=== PATIENT | female | born 1950 | race Caucasian/White ===

== ENCOUNTER 2022-03-10 18:56 | Emergency (ER) | payer MEDICARE ==
[~2022-03-10] VITALS: Ht 152.4 cm; Wt 81.7 kg
[~2022-03-10 18:56] MED LIST: HYDCHL12.5 PO; LIOT5; LOSA25 PO; METF500 PO; NATURE THROID; OMEP20ER PO; SUPRENZA ODT15 MG PO; VALS80 PO
[2022-03-10] MEDS ORDERED: ERYT.5TO BOTHEYES (21:22)
== END 2022-03-10 21:30 | disposition home or self-care (01) ==
LOC: ER 18:56
DX: H10.9 Unspecified conjunctivitis (principal); I10 Essential (primary) hypertension; Z79.899 Other long term (current) drug therapy; Z88.2 Allergy status to sulfonamides; Z91.018 Allergy to other foods
CPT/HCPCS: A9270

== ENCOUNTER 2024-07-05 17:01 | Emergency (ER) | payer MEDICARE ==
[~2024-07-05] VITALS: Ht 152.4 cm; Wt 81.7 kg
[~2024-07-05 17:01] MED LIST changes: +ERYT.5TO BOTHEYES
[2024-07-05 17:38] LABS: BASOPHILS ABSOLUTE AUTO 0.02 K/mm3 (0.00-0.23); BASOPHILS PERCENT AUTO 0 % (0-2); EOSINOPHILS ABSOLUTE AUTO 0.12 K/mm3 (0.00-0.68); EOSINOPHILS PERCENT AUTO 2 % (0-6); Hematocrit 40.6 % (33.0-51.0); Hemoglobin 13.2 g/dL (11.5-16.0); IMMATURE GRAN ABSOLUTE AUTO 0.03 K/mm3 (0.00-0.10); IMMATURE GRAN PERCENT AUTO 0 % (0-1); LYMPHOCYTES ABSOLUTE AUTO 0.63 K/mm3 (0.84-5.20); LYMPHOCYTES PERCENT AUTO 9 % (21-46); MONOCYTES ABSOLUTE AUTO 0.45 K/mm3 (0.16-1.47); MONOCYTES PERCENT AUTO 7 % (4-13); Mean Corpuscular HGB 29.2 pg (26.0-34.0); Mean Corpuscular HGB Conc 32.5 g/dL (31.5-36.5); Mean Corpuscular Volume 90 fL (80-100); NEUTROPHILS ABSOLUTE AUTO 5.59 K/mm3 (1.96-9.15); NEUTROPHILS PERCENT AUTO 82 % (41-73); Platelet Count 179 K/mm3 (150-400); RDW Coefficient Variation 13.2 % (11.7-14.2); RDW Standard Deviation 43.8 fL (35.1-46.3); Red Blood Cell Count 4.52 M/mm3 (3.80-5.20); White Blood Cell Count 6.84 K/mm3 (4.00-11.30)
[2024-07-05 18:16] LABS: Albumin, Blood 3.8 g/dL (3.4-5.0); Albumin/Globulin Ratio 1.2 (0.8-1.8); Bilirubin, Total 0.3 mg/dL (0.1-1.0); Bun/Creatinine Ratio 20.1 (12.0-20.0); Calcium, Blood 9.1 mg/dL (8.5-10.1); Creatinine, Blood 0.8 mg/dL (0.40-1.00); Globulin, Blood 3.2 g/dL (2.2-4.0); Potassium, Blood 3.9 mmol/L (3.5-5.5)
[2024-07-05] MEDS ORDERED: LOSA50 PO (18:57)
[2024-07-05] MEDS ORDERED: SPIRONOLACTONE50 MG PO (18:57)
[2024-07-05] MEDS ORDERED: BUPROPION HCL200 M1 PO (18:58)
[2024-07-05] MEDS ORDERED: METFORMIN HCL500 M3 PO (18:58)
[2024-07-05] MEDS ORDERED: ESTRADIOL1 M1 PO (18:59)
[2024-07-05] MEDS ORDERED: ADTHYZA PO (18:59)
[2024-07-05 19:07] LABS: Source, Urine Clean Catch
[2024-07-05 19:12] LABS: Appearance, Urine Clear (Clear); Bilirubin, Urine Neg (Neg); Blood, Urine Neg (Neg); Color, Urine Yellow (P-Yellow); Glucose Qualitative, Urine Neg (Neg); Ketones, Urine Neg (Neg); Leukocyte Esterase, Urine 1+ (Neg); Nitrite, Urine Neg (Neg); Protein, Urine Neg (Neg); Urobilinogen, Urine NORM (Normal)
[2024-07-05 19:30] VITALS: BP 149/82
[2024-07-05 19:35] LABS: Bacteria Many /hpf; Red Blood Cells, Urine 0-2 /hpf (0-2); Squamous Epithelial Cells Mod /hpf (Few); White Blood Cells, Urine 0-2 /hpf (0-5)
[2024-07-05 19:36] LABS: Amorphous Light (0-Heavy)
== END 2024-07-05 20:17 | disposition home or self-care (01) ==
LOC: ER 17:01
PROVIDERS: Physician Assistant
DX: R10.11 Right upper quadrant pain (principal); K63.89 Other specified diseases of intestine; I10 Essential (primary) hypertension; I48.91 Unspecified atrial fibrillation; Z88.2 Allergy status to sulfonamides; Z79.899 Other long term (current) drug therapy; Z79.84 Long term (current) use of oral hypoglycemic drugs; Z79.890 Hormone replacement therapy; Z16.29 Resistance to other single specified antibiotic
CPT/HCPCS: 74177; 80053; 81001; 83605; 85025; 87086; 99284-25; Q9967

== ENCOUNTER → 2024-07-07 | Outpatient (CLI) | payer MEDICARE ==
[~2024-07-07] MED LIST changes: +ADTHYZA PO; +BUPROPION HCL200 M1 PO; +ESTRADIOL1 M1 PO; +LOSA50 PO; +METFORMIN HCL500 M3 PO; +SPIRONOLACTONE50 MG PO
[2024-07-07 09:45] LABS: BASOPHILS ABSOLUTE AUTO 0.02 K/mm3 (0.00-0.23); BASOPHILS PERCENT AUTO 0 % (0-2); EOSINOPHILS ABSOLUTE AUTO 0.02 K/mm3 (0.00-0.68); EOSINOPHILS PERCENT AUTO 0 % (0-6); Hematocrit 39.1 % (33.0-51.0); Hemoglobin 12.8 g/dL (11.5-16.0); IMMATURE GRAN ABSOLUTE AUTO 0.03 K/mm3 (0.00-0.10); IMMATURE GRAN PERCENT AUTO 1 % (0-1); LYMPHOCYTES ABSOLUTE AUTO 0.52 K/mm3 (0.84-5.20); LYMPHOCYTES PERCENT AUTO 9 % (21-46); MONOCYTES PERCENT AUTO 9 % (4-13); Mean Corpuscular HGB 29.5 pg (26.0-34.0); Mean Corpuscular HGB Conc 32.7 g/dL (31.5-36.5); Mean Corpuscular Volume 90 fL (80-100); Mean Platelet Volume 10.9 fL (9.1-12.4); NEUTROPHILS ABSOLUTE AUTO 4.57 K/mm3 (1.96-9.15); NEUTROPHILS PERCENT AUTO 81 % (41-73); Platelet Count 159 K/mm3 (150-400); RDW Coefficient Variation 13.6 % (11.7-14.2); RDW Standard Deviation 44.6 fL (35.1-46.3); Red Blood Cell Count 4.34 M/mm3 (3.80-5.20); White Blood Cell Count 5.66 K/mm3 (4.00-11.30)
== END ==
LOC: LAB SHORT 09:41 → LAB 09:41
PROVIDERS: Physician Assistant
DX: R10.31 Right lower quadrant pain (principal)
CPT/HCPCS: 85025

== ENCOUNTER → 2024-12-28 | Outpatient (CLI) | payer MEDICARE ==
[2024-12-28 20:46] LABS: Creatinine, Urine Random 151.0 mg/dL (27.00-270.00); Microalb/Creat Ratio UR, Rand 4.126 mg/g (0.000-30.000); Microalbumin, Random Urine 6.23 mg/L (0.000-20.000)
== END | disposition home or self-care (01) ==
LOC: LAB 14:07 → LAB SHORT 14:07
PROVIDERS: Internal Medicine
DX: E11.9 Type 2 diabetes mellitus without complications (principal)
CPT/HCPCS: 82043; 82570

== ENCOUNTER → 2025-01-03 | Outpatient (CLI) | payer MEDICARE ==
[~2025-01-03] MED LIST changes: +AMOCLA875 PO; -LIOT5; +LIOT5 PO; +MODAFINIL100 M4 PO; +MONDOXYNE NL100 MG PO; +SYNTHROID100 M14 PO; +VISBIOME 112.51 EACH PO
== END ==
LOC: LAB SHORT 18:23 → LAB 18:23
DX: L03.221 Cellulitis of neck (principal); L02.11 Cutaneous abscess of neck
CPT/HCPCS: 87070; 87075; 87077; 87186; 87205

== ENCOUNTER 2025-01-04 09:41 | Inpatient (IN) | payer MEDICARE ==
[~2025-01-04] VITALS: Ht 152.4 cm; Wt 78.3 kg
[~2025-01-04 09:41] MED LIST changes: -AMOCLA875 PO; -METFORMIN HCL500 M3 PO; -MODAFINIL100 M4 PO; -MONDOXYNE NL100 MG PO; -SYNTHROID100 M14 PO; -VISBIOME 112.51 EACH PO
[2025-01-04] MEDS ORDERED: Dexamethasone Sod Phos 10 MG/ML 1ML VIAL IV ONE (10:05)
[2025-01-04] MEDS ORDERED: MODAFINIL100 M4 PO (10:05)
[2025-01-04] MEDS ORDERED: MONDOXYNE NL100 MG PO (10:05)
[2025-01-04] MEDS ORDERED: Ondansetron HCl 2 MG / ML 2ML Vial IV ONE (10:10)
[2025-01-04] MEDS ORDERED: Ampicillin Sod/Sulbactam Sod 3 GM in NS 100 ML IV ONE (10:10)
[2025-01-04] MEDS ORDERED: Morphine Sulfate 4 MG/1 ML Injection IV ONE (10:10)
[2025-01-04 10:48] LABS: BASOPHILS ABSOLUTE AUTO 0.03 K/mm3 (0.00-0.23); BASOPHILS PERCENT AUTO 1 % (0-2); EOSINOPHILS ABSOLUTE AUTO 0.11 K/mm3 (0.00-0.68); EOSINOPHILS PERCENT AUTO 2 % (0-6); Hematocrit 40.7 % (33.0-51.0); Hemoglobin 13.3 g/dL (11.5-16.0); IMMATURE GRAN ABSOLUTE AUTO 0.03 K/mm3 (0.00-0.10); IMMATURE GRAN PERCENT AUTO 1 % (0-1); LYMPHOCYTES ABSOLUTE AUTO 1.22 K/mm3 (0.84-5.20); LYMPHOCYTES PERCENT AUTO 18 % (21-46); MONOCYTES ABSOLUTE AUTO 0.54 K/mm3 (0.16-1.47); MONOCYTES PERCENT AUTO 8 % (4-13); Mean Corpuscular HGB Conc 32.7 g/dL (31.5-36.5); Mean Corpuscular Volume 89 fL (80-100); NEUTROPHILS ABSOLUTE AUTO 4.70 K/mm3 (1.96-9.15); NEUTROPHILS PERCENT AUTO 71 % (41-73); NRBC ABSOLUTE 0.00 K/mm3 (0.00-0.02); NRBC Auto 0.0 /100 WBC (0.0-0.2); Platelet Count 198 K/mm3 (150-400); RDW Coefficient Variation 13.2 % (11.7-14.2); RDW Standard Deviation 42.8 fL (35.1-46.3)
[2025-01-04 11:12] LABS: Thyroid Stimulating Hormone 0.214 uIU/mL (0.360-4.800)
[2025-01-04 11:13] LABS: Alanine Aminotransfer (ALT/SGP 18.0 U/L (12-78); Albumin, Blood 3.4 g/dL (3.4-5.0); Albumin/Globulin Ratio 1.0 (0.8-1.8); Anion Gap 7.0 mmol/L (3-11); Aspartate Aminotrans (AST/SGOT 10.0 U/L (12-37); Bilirubin, Total 0.3 mg/dL (0.1-1.0); Blood Urea Nitrogen 16.0 mg/dL (8-24); CO2, Blood 27.0 mmol/L (21-32); Calcium, Blood 9.4 mg/dL (8.5-10.1); Chloride, Blood 107.0 mmol/L (98-108); Creatinine, Blood 0.84 mg/dL (0.40-1.00); Globulin, Blood 3.3 g/dL (2.2-4.0); Glucose, Blood 90.0 mg/dL (70-99); Potassium, Blood 4.6 mmol/L (3.5-5.5); Sodium, Blood 136.0 mmol/L (136-145); Total Protein, Blood 6.7 g/dL (6.4-8.2)
[2025-01-04] MEDS ORDERED: Morphine Sulfate 4 MG/1 ML Injection IV PRN (12:50)
[2025-01-04 15:15] VITALS: BP 119/64
[2025-01-04] MEDS ORDERED: NS 250 ML IV PRN (17:15)
[2025-01-04] MEDS ORDERED: Ampicillin Sod/Sulbactam Sod 3 GM in NS 100 ML IV SCH (18:00)
--- NOTE | 2025-01-04 18:11 | NUR ---
SHIFT SUMMARY PT ADMITTED THIS SHIFT, AOX4. INDEPENDENT IN THE ROOM. PICTURES IN CHART OF L NECK ABSCESS. PAIN MEDS PER THE EMAR. PT REPOSITIONS SELF IN BED. AT THE BS. DRESSING TO L NECK. CALL LIGHT WITHIN REACH, BED LOCKED AND IN THE LOWEST POSITION. WILL REPORT TO ONCOMING NURSE.
[2025-01-04 20:08] VITALS: BP 119/57
[2025-01-04] MEDS ORDERED: Lactobacil 2-S.Thermo-Bifido 1 1 Cap PO SCH (21:00)
[2025-01-05 04:25] VITALS: BP 118/70
[2025-01-05 04:52] LABS: BASOPHILS ABSOLUTE AUTO 0.01 K/mm3 (0.00-0.23); BASOPHILS PERCENT AUTO 0 % (0-2); EOSINOPHILS ABSOLUTE AUTO 0.00 K/mm3 (0.00-0.68); EOSINOPHILS PERCENT AUTO 0 % (0-6); Hematocrit 37.3 % (33.0-51.0); Hemoglobin 11.9 g/dL (11.5-16.0); IMMATURE GRAN ABSOLUTE AUTO 0.07 K/mm3 (0.00-0.10); IMMATURE GRAN PERCENT AUTO 1 % (0-1); LYMPHOCYTES ABSOLUTE AUTO 0.64 K/mm3 (0.84-5.20); LYMPHOCYTES PERCENT AUTO 5 % (21-46); MONOCYTES ABSOLUTE AUTO 0.65 K/mm3 (0.16-1.47); MONOCYTES PERCENT AUTO 5 % (4-13); Mean Corpuscular HGB Conc 31.9 g/dL (31.5-36.5); Mean Corpuscular Volume 88 fL (80-100); NEUTROPHILS ABSOLUTE AUTO 11.70 K/mm3 (1.96-9.15); NEUTROPHILS PERCENT AUTO 90 % (41-73); NRBC ABSOLUTE 0.00 K/mm3 (0.00-0.02); NRBC Auto 0.0 /100 WBC (0.0-0.2); Platelet Count 218 K/mm3 (150-400); RDW Coefficient Variation 13.2 % (11.7-14.2); RDW Standard Deviation 42.2 fL (35.1-46.3)
[2025-01-05 05:12] LABS: Anion Gap 7.0 mmol/L (3-11); Blood Urea Nitrogen 23.0 mg/dL (8-24); CO2, Blood 26.0 mmol/L (21-32); Calcium, Blood 8.5 mg/dL (8.5-10.1); Chloride, Blood 110.0 mmol/L (98-108); Creatinine, Blood 0.82 mg/dL (0.40-1.00); Glucose, Blood 131.0 mg/dL (70-99); Potassium, Blood 4.2 mmol/L (3.5-5.5); Sodium, Blood 139.0 mmol/L (136-145)
--- NOTE | 2025-01-05 05:46 | NUR ---
SHIFT SUMMARY; PATIENT SLEPT IN LONG INTERVALS. WAS MEDICATED X 1 WITH MS FOR PAIN, VSS
[2025-01-05 07:38] VITALS: BP 119/65
[2025-01-05 15:02] VITALS: BP 118/69
--- NOTE | 2025-01-05 16:47 | NUR ---
SHIFT SUMMARY PT AOX4, INDEPENDENT. NO ACUTE ISSUES, PAIN WELL MANAGED TODAY. STAYING FOR ANOTHER NIGHT TO GET IV UNASYN. PT ABLE TO MAKE NEEDS KNOWN. WALKING THE HALLS THIS SHIFT. CALL LIGHT WITHIN REACH, BED LOCKED AND IN THE LOWEST POSITION. WILL REPORT TO ONCOMING NURSE.
[2025-01-05] MEDS ORDERED: SYNTHROID100 M14 PO (18:34)
[2025-01-05] MEDS ORDERED: METFORMIN HCL500 M3 PO (18:36)
[2025-01-05 19:44] VITALS: BP 124/67
[2025-01-06 04:23] VITALS: BP 120/66
--- NOTE | 2025-01-06 04:31 | NUR ---
PT A&O X4, VS WNL, INDEPENDENT WITH MOBILITY AND ADL'S, PAIN NOTED IN NECK WHICH RADIATES DOWN CHEST. PT MEDICATED WITH MORPHINE. REMAINS ON IVABX. ABCESS IS LARGE, SWOLLEN, RED, AND PAINFUL. WEARS CPAP AT NIGHT. PLAN TO DO OUPATIENT I&D PER DR JOLLEY, MAY NEED TO DO INPATIENT DEPENDING ON HOW REACTS TO IVABX. WILL D/C TO HOME.
[2025-01-06 05:41] LABS: BASOPHILS ABSOLUTE AUTO 0.03 K/mm3 (0.00-0.23); BASOPHILS PERCENT AUTO 0 % (0-2); EOSINOPHILS ABSOLUTE AUTO 0.07 K/mm3 (0.00-0.68); EOSINOPHILS PERCENT AUTO 1 % (0-6); Hematocrit 36.8 % (33.0-51.0); Hemoglobin 11.5 g/dL (11.5-16.0); IMMATURE GRAN ABSOLUTE AUTO 0.07 K/mm3 (0.00-0.10); IMMATURE GRAN PERCENT AUTO 1 % (0-1); LYMPHOCYTES ABSOLUTE AUTO 1.74 K/mm3 (0.84-5.20); LYMPHOCYTES PERCENT AUTO 23 % (21-46); MONOCYTES ABSOLUTE AUTO 0.54 K/mm3 (0.16-1.47); MONOCYTES PERCENT AUTO 7 % (4-13); Mean Corpuscular HGB Conc 31.3 g/dL (31.5-36.5); Mean Corpuscular Volume 90 fL (80-100); NEUTROPHILS ABSOLUTE AUTO 5.20 K/mm3 (1.96-9.15); NEUTROPHILS PERCENT AUTO 68 % (41-73); NRBC ABSOLUTE 0.00 K/mm3 (0.00-0.02); NRBC Auto 0.0 /100 WBC (0.0-0.2); Platelet Count 181 K/mm3 (150-400); RDW Coefficient Variation 13.4 % (11.7-14.2); RDW Standard Deviation 44.4 fL (35.1-46.3)
[2025-01-06 08:01] VITALS: BP 139/66
[2025-01-06] MEDS ORDERED: Lidocaine 1%-EPI 1:100,000 50 ML UD SCH (10:20)
[2025-01-06 15:46] VITALS: BP 126/69
--- NOTE | 2025-01-06 16:16 | NUR ---
COMPLETED BEDSIDE I&D WITH DR. JOLLEY
--- NOTE | 2025-01-06 18:41 | NUR ---
SHIFT SUMMARY: PATIENT UNDERWENT A BEDSIDE I&D THIS AFTERNOON WITH DR. JOLLEY. PATIENT HAS NOW RECOVERED AND DOING BETTER SINCE THE PROCEDURE. [place] DRAIN SUTURED IN PLACE. PATIENT IN BED, ALERT, AT BEDSIDE, EATING DINNER, IV ANTIBIOTICS IN PLACE, NO SIGNS OR SYMPTOMS OF DISTRESS,PLAN OF CARE ONGOING.
[2025-01-06 19:21] VITALS: BP 123/69
--- NOTE | 2025-01-07 03:49 | NUR ---
SHIFT SUMMARY: PT IS AOX4. FAMILY AT BEDSIDE THE START OF SHIFT. PT VOIDED 2-3 TIMES INDEPENDENTLY. MEDICATED PER EMAR. NO ACUTE CHANGES. PIN JAMI DRAIN C/D/I ON LEFT SIDE OF NECK.
[2025-01-07 04:15] VITALS: BP 121/67
[2025-01-07 07:40] VITALS: BP 115/84
[2025-01-07] MEDS ORDERED: AMOCLA875 PO (11:27)
[2025-01-07] MEDS ORDERED: VISBIOME 112.51 EACH PO (11:28)
--- NOTE | 2025-01-07 11:58 | NUR ---
DISCHARGE NOTE: WENT OVER DISCHARGE WITH THE PATIENT. IV REMOVED, WOUND CARE PROVIDED/SUPPLIES GIVEN. PATIENT GATHERED BELONGINGS AND WALKED OUT OF UNIT WITH . NO SIGNS OR SYMPTOMS OF DISTRESS WITH DISCHARGE.
== END 2025-01-07 12:03 | disposition home or self-care (01) | DRG 603 ==
LOC: ER 09:41 → ERHOLD 09:42 → MEDS 09:42
PROVIDERS: Emergency Medicine; ADMIT Family Medicine
PROC: 0H94XZZ Drainage of Neck Skin, External Approach (ICD-10-PCS; principal; 2025-01-04)
PROC: 3E03329 Introduction of Other Anti-infective into Peripheral Vein, Percutaneous Approach (ICD-10-PCS; 2025-01-04)
DX: L02.11 Cutaneous abscess of neck (principal); L72.3 Sebaceous cyst; I48.0 Paroxysmal atrial fibrillation; I10 Essential (primary) hypertension; G47.30 Sleep apnea, unspecified; Z90.49 Acquired absence of other specified parts of digestive tract; Z98.890 Other specified postprocedural states; Z88.2 Allergy status to sulfonamides; Z91.018 Allergy to other foods; Z79.899 Other long term (current) drug therapy; E03.9 Hypothyroidism, unspecified; Z79.84 Long term (current) use of oral hypoglycemic drugs
CPT/HCPCS: 36415; 70491; 80048; 80053; 83605; 84439; 84443; 85025; 94760; 94762; 96365-59; 96375; 99284-25; A9270; G0378; J0295; J1100; J2270; J2405; J7050; Q9967

== ENCOUNTER 2025-03-27 23:06 | Inpatient (IN) | payer MEDICARE ==
[~2025-03-27] VITALS: Ht 152.4 cm; Wt 81.9 kg
[~2025-03-27 23:06] MED LIST changes: +AMOCLA875 PO; +METFORMIN HCL500 M3 PO; +MODAFINIL100 M4 PO; +MONDOXYNE NL100 MG PO; +SYNTHROID100 M14 PO; +VISBIOME 112.51 EACH PO
[2025-03-27] MEDS ORDERED: Ketorolac Tromethamine 30mg Vial IV ONE (23:40)
[2025-03-27] MEDS ORDERED: Ondansetron HCl 2 MG / ML 2ML Vial IV ONE (23:40)
[2025-03-28 00:13] LABS: BASOPHILS ABSOLUTE AUTO 0.02 K/mm3 (0.00-0.23); BASOPHILS PERCENT AUTO 0 % (0-2); EOSINOPHILS ABSOLUTE AUTO 0.01 K/mm3 (0.00-0.68); EOSINOPHILS PERCENT AUTO 0 % (0-6); Hematocrit 48.2 % (33.0-51.0); Hemoglobin 15.5 g/dL (11.5-16.0); IMMATURE GRAN ABSOLUTE AUTO 0.03 K/mm3 (0.00-0.10); IMMATURE GRAN PERCENT AUTO 0 % (0-1); LYMPHOCYTES ABSOLUTE AUTO 0.69 K/mm3 (0.84-5.20); LYMPHOCYTES PERCENT AUTO 6 % (21-46); MONOCYTES ABSOLUTE AUTO 0.30 K/mm3 (0.16-1.47); MONOCYTES PERCENT AUTO 3 % (4-13); Mean Corpuscular HGB Conc 32.2 g/dL (31.5-36.5); Mean Corpuscular Volume 88 fL (80-100); NEUTROPHILS ABSOLUTE AUTO 9.78 K/mm3 (1.96-9.15); NEUTROPHILS PERCENT AUTO 90 % (41-73); NRBC ABSOLUTE 0.00 K/mm3 (0.00-0.02); NRBC Auto 0.0 /100 WBC (0.0-0.2); Platelet Count 212 K/mm3 (150-400); RDW Coefficient Variation 12.9 % (11.7-14.2); RDW Standard Deviation 41.9 fL (35.1-46.3)
[2025-03-28 00:31] LABS: Alanine Aminotransfer (ALT/SGP 35.0 U/L (12-78); Albumin, Blood 4.5 g/dL (3.4-5.0); Albumin/Globulin Ratio 1.3 (0.8-1.8); Anion Gap 11.0 mmol/L (3-11); Aspartate Aminotrans (AST/SGOT 18.0 U/L (12-37); Bilirubin, Total 0.5 mg/dL (0.1-1.0); Blood Urea Nitrogen 16.0 mg/dL (8-24); CO2, Blood 26.0 mmol/L (21-32); Calcium, Blood 10.2 mg/dL (8.5-10.1); Chloride, Blood 105.0 mmol/L (98-108); Creatinine, Blood 0.78 mg/dL (0.40-1.00); Globulin, Blood 3.4 g/dL (2.2-4.0); Glucose, Blood 238.0 mg/dL (70-99); Potassium, Blood 4.1 mmol/L (3.5-5.5); Sodium, Blood 138.0 mmol/L (136-145); Total Protein, Blood 7.9 g/dL (6.4-8.2)
[2025-03-28 01:21] LABS: Source, Urine Clean Catch
[2025-03-28 01:26] LABS: Bilirubin, Urine Neg (Neg); Color, Urine Yellow (P-Yellow); Glucose Qualitative, Urine 1+ (Neg); Ketones, Urine Neg (Neg); Leukocyte Esterase, Urine Neg (Neg); Protein, Urine 1+ (Neg); Specific Gravity, Urine 1.015 (1.003-1.022); Urobilinogen, Urine NORM (Normal)
[2025-03-28] MEDS ORDERED: NS 1,000 ML IV SCH (02:35)
[2025-03-28] MEDS ORDERED: FLU VACC TS2025(65UP)/MF59C/PF 45 MCG/0.5 ML SYRINGE IM SCH (03:50)
[2025-03-28] MEDS ORDERED: Ondansetron HCl 2 MG / ML 2ML Vial IV PRN (03:50)
[2025-03-28] MEDS ORDERED: Ketorolac Tromethamine 15mg Vial IV PRN (04:00)
[2025-03-28] MEDS ORDERED: Pantoprazole Sodium 40 MG Injection IV ONE (04:00)
[2025-03-28] MEDS ORDERED: FentaNYL Citrate 50 MCG/ML 2 ML Injection IV ONE (04:20)
[2025-03-28] MEDS ORDERED: Ondansetron HCl 2 MG / ML 2ML Vial ONE (04:57)
[2025-03-28 05:37] VITALS: BP 165/71
[2025-03-28 05:50] LABS: BASOPHILS ABSOLUTE AUTO 0.02 K/mm3 (0.00-0.23); BASOPHILS PERCENT AUTO 0 % (0-2); EOSINOPHILS ABSOLUTE AUTO 0.00 K/mm3 (0.00-0.68); EOSINOPHILS PERCENT AUTO 0 % (0-6); Hematocrit 43.6 % (33.0-51.0); Hemoglobin 14.3 g/dL (11.5-16.0); IMMATURE GRAN ABSOLUTE AUTO 0.03 K/mm3 (0.00-0.10); IMMATURE GRAN PERCENT AUTO 0 % (0-1); LYMPHOCYTES ABSOLUTE AUTO 0.45 K/mm3 (0.84-5.20); LYMPHOCYTES PERCENT AUTO 4 % (21-46); MONOCYTES ABSOLUTE AUTO 0.44 K/mm3 (0.16-1.47); MONOCYTES PERCENT AUTO 4 % (4-13); Mean Corpuscular HGB Conc 32.8 g/dL (31.5-36.5); Mean Corpuscular Volume 87 fL (80-100); NEUTROPHILS ABSOLUTE AUTO 10.32 K/mm3 (1.96-9.15); NEUTROPHILS PERCENT AUTO 92 % (41-73); NRBC ABSOLUTE 0.00 K/mm3 (0.00-0.02); NRBC Auto 0.0 /100 WBC (0.0-0.2); Platelet Count 200 K/mm3 (150-400); RDW Coefficient Variation 13.2 % (11.7-14.2); RDW Standard Deviation 42.2 fL (35.1-46.3)
[2025-03-28 06:09] LABS: Alanine Aminotransfer (ALT/SGP 34.0 U/L (12-78); Albumin, Blood 3.8 g/dL (3.4-5.0); Albumin/Globulin Ratio 1.2 (0.8-1.8); Anion Gap 9.0 mmol/L (3-11); Aspartate Aminotrans (AST/SGOT 18.0 U/L (12-37); Bilirubin, Total 0.5 mg/dL (0.1-1.0); Blood Urea Nitrogen 17.0 mg/dL (8-24); CO2, Blood 27.0 mmol/L (21-32); Calcium, Blood 9.5 mg/dL (8.5-10.1); Chloride, Blood 106.0 mmol/L (98-108); Creatinine, Blood 0.69 mg/dL (0.40-1.00); Globulin, Blood 3.2 g/dL (2.2-4.0); Glucose, Blood 179.0 mg/dL (70-99); Magnesium, Blood 2.3 mg/dL (1.6-2.4); Potassium, Blood 4.1 mmol/L (3.5-5.5); Sodium, Blood 138.0 mmol/L (136-145); Total Protein, Blood 7.0 g/dL (6.4-8.2)
[2025-03-28 07:25] VITALS: BP 151/91
--- NOTE | 2025-03-28 07:27 | NUR ---
NEW ADMIT PT ARRIVED TO ROOM AT APROX 0530. PT IS PLEASANT 74 Y/O FEMALE. A/OX4. ABLE TO MAKE NEEDS KNOWN. PT IS STEADY ON FEET AND DOES NOT USE ASSISTIVE DEVICE. NO HX OF FALLS. PT REPORTS ABD PAIN STARTING APROX WEEK AGO WITH N&V. PT DX WITH PARTIAL SBO. EDUCATED PT ON NPO STATUS. PT LIVES WITH AND DENIES SAFETY CONCERNS. PT ENDORSES HX OF NEUROPATHY TO BLE. PT IS FULL CODE. HOME MED REC COMPLETE. LUNGS ARE CLEAR. PT C/O OF 7/10 EPIGASTRIC PAIN. MEDS PER MAR. PT CONTINUES FEELING NAUSEAS BUT NO EMESIS. ORIENTED PT TO ROOM AND CALL LIGHT.
[2025-03-28 15:37] VITALS: BP 131/63
--- NOTE | 2025-03-28 17:57 | NUR ---
SHIFT SUMMARY PT AOX4, COOPERATIVE, ABLE TO MAKE NEEDS KNOWN. PT NPO FOR DURATION OF SHIFT, TOELRATING STATUS WELL. AMBULATING IN HALLWAYS, TOLERTING MEDICATION. HOLDING OFF ON NG TUBE FOR NOW UNLESS PT STARTING HAVING EMESIS, NO EMESIS FOR THIS SHIFT. PT DOES HAVE ANXIETY ABOUT TRAJECTORY OF PLAN, IS ABLE TO BE CALMED DOWN BY THERAPEUTIC COMMUNICAITON. ON ROOM AIR, USES SLEEP MASK NOC, PULSE OX ACTIVE DURING NOC. BED IN LOWEST POSITION, CALL LIGHT WITHIN REACH.
[2025-03-28 18:05] VITALS: BP 131/71
[2025-03-28 19:50] VITALS: BP 112/50
--- NOTE | 2025-03-29 04:22 | NUR ---
SHIFT SUMMARY; PATIENT SLEPT IN LONG INTERVALS, DID NOT REQUEST ANY PAIN MEDS. NO NAUSEA OR EMESIS. LR/100ML/HR CONTINUOUS. NPO, EXCEPT SIP WATER WITH MEDS. USED HER OWN CPAP. CBG'S WNL.
[2025-03-29 04:25] VITALS: BP 127/64
[2025-03-29 05:21] LABS: BASOPHILS ABSOLUTE AUTO 0.02 K/mm3 (0.00-0.23); BASOPHILS PERCENT AUTO 0 % (0-2); EOSINOPHILS ABSOLUTE AUTO 0.09 K/mm3 (0.00-0.68); EOSINOPHILS PERCENT AUTO 2 % (0-6); Hematocrit 35.3 % (33.0-51.0); Hemoglobin 11.3 g/dL (11.5-16.0); IMMATURE GRAN ABSOLUTE AUTO 0.02 K/mm3 (0.00-0.10); IMMATURE GRAN PERCENT AUTO 0 % (0-1); LYMPHOCYTES ABSOLUTE AUTO 1.69 K/mm3 (0.84-5.20); LYMPHOCYTES PERCENT AUTO 29 % (21-46); MONOCYTES ABSOLUTE AUTO 0.49 K/mm3 (0.16-1.47); MONOCYTES PERCENT AUTO 9 % (4-13); Mean Corpuscular HGB Conc 32.0 g/dL (31.5-36.5); Mean Corpuscular Volume 91 fL (80-100); NEUTROPHILS ABSOLUTE AUTO 3.44 K/mm3 (1.96-9.15); NEUTROPHILS PERCENT AUTO 60 % (41-73); NRBC ABSOLUTE 0.00 K/mm3 (0.00-0.02); NRBC Auto 0.0 /100 WBC (0.0-0.2); Platelet Count 152 K/mm3 (150-400); RDW Coefficient Variation 13.2 % (11.7-14.2); RDW Standard Deviation 44.0 fL (35.1-46.3)
[2025-03-29 05:47] LABS: Anion Gap 7.0 mmol/L (3-11); Blood Urea Nitrogen 20.0 mg/dL (8-24); CO2, Blood 28.0 mmol/L (21-32); Calcium, Blood 8.5 mg/dL (8.5-10.1); Chloride, Blood 111.0 mmol/L (98-108); Creatinine, Blood 0.9 mg/dL (0.40-1.00); Glucose, Blood 105.0 mg/dL (70-99); Potassium, Blood 3.8 mmol/L (3.5-5.5); Sodium, Blood 142.0 mmol/L (136-145)
[2025-03-29] MEDS ORDERED: Pantoprazole Sodium 40 MG Injection IV SCH (06:00)
[2025-03-29 08:17] VITALS: BP 109/57
[2025-03-29 15:18] VITALS: BP 164/64
--- NOTE | 2025-03-29 18:49 | NUR ---
END OF SHIFT NOTE PATIENT RESTING AT BEDSIDE WITH FAMILY IN ROOM. A&OX4, ABLE TO MAKE NEEDS KNOWN, IND IN ROOM. PATIENT AMBULATED HALLS TODAY, FEEL BETTER, ADVANCED TO CLEAR LIQUID DIET. NO OTHER CONCERNS FOR THIS SHIFT.
[2025-03-29 20:12] VITALS: BP 140/77
--- NOTE | 2025-03-30 04:14 | NUR ---
SHIFT SUMMARY PATIENT IS ALERT AND ORIENTED. PATIENT HAS HAD NO ACUTE EVENTS THIS SHIFT. VITAL SIGNS REVIEWED. PATIENT HAS HAD NO COMPLAINTS OF SOB, NAUSEA, PAIN OR VOMITTING THIS SHIFT. PATIENT TOLERATING CLEAR LIQUIDS WELL. BED IN LOCKED AND LOWEST POSITION. CALL LIGHT IN PLACE.
[2025-03-30 05:17] LABS: BASOPHILS ABSOLUTE AUTO 0.03 K/mm3 (0.00-0.23); BASOPHILS PERCENT AUTO 1 % (0-2); EOSINOPHILS ABSOLUTE AUTO 0.08 K/mm3 (0.00-0.68); EOSINOPHILS PERCENT AUTO 1 % (0-6); Hematocrit 34.4 % (33.0-51.0); Hemoglobin 11.1 g/dL (11.5-16.0); IMMATURE GRAN ABSOLUTE AUTO 0.01 K/mm3 (0.00-0.10); IMMATURE GRAN PERCENT AUTO 0 % (0-1); LYMPHOCYTES ABSOLUTE AUTO 1.52 K/mm3 (0.84-5.20); LYMPHOCYTES PERCENT AUTO 27 % (21-46); MONOCYTES ABSOLUTE AUTO 0.51 K/mm3 (0.16-1.47); MONOCYTES PERCENT AUTO 9 % (4-13); Mean Corpuscular HGB Conc 32.3 g/dL (31.5-36.5); Mean Corpuscular Volume 89 fL (80-100); NEUTROPHILS ABSOLUTE AUTO 3.57 K/mm3 (1.96-9.15); NEUTROPHILS PERCENT AUTO 62 % (41-73); NRBC ABSOLUTE 0.00 K/mm3 (0.00-0.02); NRBC Auto 0.0 /100 WBC (0.0-0.2); Platelet Count 152 K/mm3 (150-400); RDW Coefficient Variation 13.2 % (11.7-14.2); RDW Standard Deviation 43.0 fL (35.1-46.3)
[2025-03-30 05:50] LABS: Anion Gap 7.0 mmol/L (3-11); Blood Urea Nitrogen 19.0 mg/dL (8-24); CO2, Blood 28.0 mmol/L (21-32); Calcium, Blood 8.7 mg/dL (8.5-10.1); Chloride, Blood 112.0 mmol/L (98-108); Creatinine, Blood 0.86 mg/dL (0.40-1.00); Glucose, Blood 93.0 mg/dL (70-99); Potassium, Blood 3.8 mmol/L (3.5-5.5); Sodium, Blood 143.0 mmol/L (136-145); Thyroid Stimulating Hormone 0.302 uIU/mL (0.360-4.800)
[2025-03-30 08:11] VITALS: BP 158/74
--- NOTE | 2025-03-30 10:59 | NUR ---
NOTE DR SILVA CALLED, PT AND DR BEAVERS ASKED IF RICARDO WOULD DISCUSS PLAN AND SITUATION WITH PATIENT. RICARDO IN OR, WILL TRY AND STOP BY BETWEEN CASES.
[2025-03-30 15:08] VITALS: BP 169/83
--- NOTE | 2025-03-30 16:24 | NUR ---
DISCHARGE NOTE PATIENT IN ROOM WITH , IV REMOVED. D/C PAPER WORK DISCUSSED AND MEDICATION DISCUSSED. PATIENT AND VERABLIZED UNDERSTANDING. DENIED ANY FURTHER QUESTIONS. PATIENT AMBULATED WITH OUT TO CAR IND.
== END 2025-03-30 16:00 | disposition home or self-care (01) | DRG 390 ==
LOC: ER 23:06 → MEDS 03-28 03:47
PROVIDERS: Family Medicine; Student in an Organized Health Care Education/Training Program; ADMIT Student in an Organized Health Care Education/Training Program
DX: K56.609 Unspecified intestinal obstruction, unspecified as to partial versus complete obstruction (principal); I48.0 Paroxysmal atrial fibrillation; I10 Essential (primary) hypertension; G47.33 Obstructive sleep apnea (adult) (pediatric); E03.9 Hypothyroidism, unspecified; D64.9 Anemia, unspecified; E66.812 Obesity, class 2; E86.0 Dehydration; I49.3 Ventricular premature depolarization; K59.09 Other constipation; Z87.19 Personal history of other diseases of the digestive system; Z90.710 Acquired absence of both cervix and uterus; Z98.891 History of uterine scar from previous surgery; Z88.5 Allergy status to narcotic agent; Z91.018 Allergy to other foods; Z79.899 Other long term (current) drug therapy; Z79.890 Hormone replacement therapy; Z79.2 Long term (current) use of antibiotics; Z87.39 Personal history of other diseases of the musculoskeletal system and connective tissue; Z90.49 Acquired absence of other specified parts of digestive tract; Z98.890 Other specified postprocedural states; Z68.35 Body mass index [BMI] 35.0-35.9, adult; Z28.21 Immunization not carried out because of patient refusal
CPT/HCPCS: 36415; 74177; 74250; 80048; 80053; 82947; 83690; 83735; 84439; 84443; 84481; 85025; 93005; 93010; 94762; 96374-59; 96375; 99285-25; A9270; J1885; J2405; J2470; J3010; J7030; J7120; Q9967